=== PATIENT | female | born 1990 | race Caucasian/White ===

== ENCOUNTER 2016-02-17 14:57 | Emergency (ER) | payer OTHER, MEDICAID ==
[2016-02-17 15:02] VITALS: BP 121/73; PULSE 81; RESP 16; TEMP 98.4; O2SAT 97
--- NOTE | 2016-02-17 15:13 | EDPHY ---
H & P Time Seen by Provider: 02/17/16 15:04 HPI/ROS: CHIEF COMPLAINT: right hand injury HISTORY OF PRESENT ILLNESS: Patient is a 25-year-old male who presents to the emergency department after falling yesterday. Patient states she had mechanical fall. She landed with the edge of her hand and karate chopped the ground. She complains of isolated pain to the medial aspect of her hand. There is mild swelling. The pain does not radiate. She sustained no other injury. She did not strike her head. No neck pain. REVIEW OF SYSTEMS: Negative Medical history: Negative Past surgical history: Negative Social history: Patient does not smoke Smoking Status: Never smoked Physical Exam: Vitals noted General Appearance: Alert and no distress. Head: Pupils equal. Normal. Neck: Nexus negative. Respiratory: No respiratory distress. Cardiac: regular rate and rhythm. Extremities: patient has mild swelling to the dorsum of her hand. There is mild tenderness to palpation over the 5th metacarpal. There is ecchymoses on the palm of her hand. No laceration. Minimal snuffbox tenderness palpation with no palpable mass or crepitus. No other metacarpal tenderness palpation. Fingers are atraumatic. Her wrist has no other tenderness to palpation. Her forearm, elbow, humerus and shoulder are atraumatic.. Back: No spinal tenderness palpation Skin: No rashes or lesions. Neuro: Alert. Normal mood and affect. Constitutional: Initial Vital Signs Temperature (C) 36.9 C 02/17/16 14:58 Heart Rate 81 02/17/16 14:58 Respiratory Rate 16 02/17/16 14:58 Blood Pressure 121/73 H 02/17/16 14:58 O2 Sat (%) 97 02/17/16 14:58 O2 Delivery Mode Room Air Allergies/Adverse Reactions: No Known Allergies Allergy (Unverified 02/17/16 15:03) Home Medications: Medication Instructions Recorded Hydrocodone/APAP 5/325 [[place] 1 - 2 tab PO Q4 #11 tab 02/17/16 5/325 (RX)] Medical Decision Making ED Course/Re-evaluation: In the emergency department I discussed possible etiologies with the patient. I answered all her questions. X-ray was ordered. Patient was given ice. Right hand x-ray: Please refer the dictated report by the radiologist. I personally reviewed the films. I discussed the results with the patient. I answered all her questions. Patient was given a Ortho Glass ulnar gutter splint Procedure: Orthoglass ulnar gutter splint. Placed by respiratory care technician. Post splint placement the patient was neurovascularly intact distally. I discussed the result with the patient. I answered all her questions. She is aware she needs close follow-up with Orthopedics. Differential Diagnosis: My differential includes but is not limited to fracture, contusion, dislocation , strain, ecchymosis Departure - Departure Disposition: Home, Routine, Self-Care Clinical Impression: Contusion of hand Qualifiers: Encounter type: initial encounter Laterality: right Qualifier Code: (S60.221A) Contusion of right hand, initial encounter Condition: Good Instructions: Contusion in Adults (ED) Additional Instructions: Your x-ray was negative. You been given follow-up with Dr. Wu from Orthopedics. Referrals: Lana Turpin MD [Primary Care Provider] - As per Instructions Tracy Wu MD [Medical Doctor] - 5-7 days, if not improved Prescriptions: Hydrocodone/APAP 5/325 [[place] 5/325 (RX)] 1 - 2 tab PO Q4 #11 tab
--- NOTE | 2016-02-17 15:32 | DX ---
Right Hand, 3 Views Clinical Indications: Trauma. Findings: No fracture or dislocation. Joint spaces have normal thickness. There are no erosions an d no periosteal reaction. No radiopaque foreign body. Impression: Normal.
== END 2016-02-17 16:14 | disposition home or self-care (01) ==
DX: S60.221A Contusion of right hand, initial encounter (principal); W18.39XA Other fall on same level, initial encounter
CPT/HCPCS: A4565